=== PATIENT | female | born 1990 | race Caucasian/White ===

== ENCOUNTER → 2018-01-23 | Outpatient (CLI) | payer OTHER ==
--- NOTE | 2018-01-23 18:25 | Diagnostic Imaging Report ---
INDICATION: Asthma. Evaluate for pneumonia. FINDINGS: There is no focal alveolar infiltrate or consolidation demonstrated. There is no evidence of an effusion. There is no pneumothorax. Heart size appears appropriate. Pulmonary vascularity appears normal. There is some slight central airway bronchial wall thickening. There is no significant hyperinflation evident. IMPRESSION: 1. Slight central airway wall thickening may relate to the patient's history of asthma or bronchitis. There is no significant hyperinflation evident at this time. There is no alveolar infiltrate or pneumonia demonstrated. Dictated by: Dictated on workstation # [id number]
== END ==
LOC: RAD 16:21
PROVIDERS: ATTEND Nurse Practitioner Family
DX: J45.909 Unspecified asthma, uncomplicated (principal)
CPT/HCPCS: 71046

== ENCOUNTER → 2018-02-08 | Outpatient (CLI) | payer OTHER ==
[~2018-02-08] MED LIST: RT-ALBUTEROL SULF 2.5 MG/3 ML PRE-MIX VIAL INH ONE; RT-ALBUTEROL SULF 2.5 MG/3 ML PRE-MIX VIAL ONE
== END ==
LOC: RT 16:22
PROVIDERS: ATTEND Nurse Practitioner Family
DX: J45.909 Unspecified asthma, uncomplicated (principal)
CPT/HCPCS: 94060; 94726; 94729